=== PATIENT | female | born 1990 | race Two or more races ===

== ENCOUNTER 2018-06-30 17:10 | Emergency (ER) | payer MEDICARE, MEDICAID ==
[~2018-06-30] VITALS: Ht 160 cm; Wt 65.8 kg
[2018-06-30 17:22] VITALS: BP 125/75
[2018-06-30] MEDS ORDERED: TETANUS-DIPTH-ACEL PERTUSSIS 0.5ML SYRG IM ONE (17:45)
== END 2018-06-30 18:15 | disposition home or self-care (01) ==
LOC: ER 17:10
DX: S60.551A Superficial foreign body of right hand, initial encounter (principal); W22.8XXA Striking against or struck by other objects, initial encounter; Y93.89 Activity, other specified; Y92.89 Other specified places as the place of occurrence of the external cause; Y99.8 Other external cause status
CPT/HCPCS: 10120; 90471; 90715

== ENCOUNTER 2024-07-14 08:17 | Emergency (ER) | payer MEDICARE, MEDICAID ==
[~2024-07-14] VITALS: Ht 165.1 cm; Wt 59.0 kg
[2024-07-14 08:45] VITALS: PULSE 105; RESP 15; O2SAT 97
[2024-07-14 09:09] LABS: Basophils # (auto) 0 10 ^3/uL (0-0.2); Basophils % (auto) 0.4 % (0.0-2.0); Eosinophils # (auto) 0 10 ^3/uL (0-0.8); Lymphocytes # (auto) 1.2 10 ^3/uL (0.4-5.4); Nucleated Red Blood Cells % 0.1 %; White Blood Cell 5.8 10^3/uL (4.4-10.8)
[2024-07-14 09:11] LABS: Eosinophils % (auto) 0.3 % (0.0-7.0); Hematocrit 36.8 % (36.0-46.0); Hemoglobin 12.2 g/dL (12.2-16.2); Lymphocytes % (auto) 21.5 % (10.0-50.0); Mean Corpuscular Hemoglobin 26.4 pg (28.0-32.0); Mean Corpuscular Hgb Conc. 33.2 g/dL (32.0-36.0); Mean Corpuscular Volume 79.4 fL (80.0-100.0); Monocytes # (auto) 0.4 10 ^3/uL (0-1.3); Monocytes % (auto) 7.1 % (0.0-12.0); Neutrophils # (auto) 4.1 10 ^3/uL (1.6-8.6); Neutrophils % (auto) 70.7 % (37.0-80.0); Platelet Count (auto) 136 10^3/uL (140-450); Red Blood Cells 4.63 10^6/uL (4.0-5.20); Red Cell Distribution Width 15.8 % (11.8-14.3)
[2024-07-14 09:15] LABS: Urine Bacteria MOD /hpf (None Seen); Urine Blood Negative /uL (Negative); Urine Clarity Clear (Clear); Urine Protein, UAD Negative (Negative); Urine Specific Gravity 1.006 (1.001-1.035); Urine Urobilinogen Normal (Negative); Urine WBC 3 /hpf (0 - 5)
[2024-07-14 09:18] LABS: Urine Color STRAW (Yellow)
[2024-07-14 10:42] LABS: Amphetamine Screen, Urine Neg (NEGATIVE); Barbiturate Scree,Urine Neg (NEGATIVE); Benzodiazephine Screen, Urine Neg (NEGATIVE); Cocaine Screen, Urine Neg (NEGATIVE)
[2024-07-14 10:43] LABS: Cannabinoid Screen, Urine Neg (NEGATIVE); Opiate Scree,Urine Neg (NEGATIVE); Phencyclidine Screen, Urine Neg (NEGATIVE)
[2024-07-14 10:47] LABS: Albumin 4.7 g/dL (3.2-4.8); Alkaline Phosphatase 110 U/L (46-116); Anion Gap 10 (5-15); Aspartate Aminotransferase 43 U/L (13-40); BUN/Creatinine Ratio 10.1 (10.0-20.0); Bilirubin, Total 1.3 mg/dL (0.2-1.0); Blood Urea Nitrogen 8 mg/dL (9-23); Calcium 9.6 mg/dL (8.7-10.4); Carbon Dioxide 22 mmol/L (20-30); Chloride 103 mmol/L (98-107); Glucose 120 mg/dL (74-106); Potassium 3.3 mmol/L (3.5-5.1); Sodium 135 mmol/L (136-145); Total Protein 7.6 g/dL (5.7-8.2)
[2024-07-14 10:50] LABS: Salicylate < 3.0 mg/dL (2.8-20.0)
[2024-07-14 11:02] LABS: Alanine Aminotransferase 48 U/L (7-40)
[2024-07-14 12:53] LABS: Acetaminophen < 2.0 UG/ML (10.0-20.0)
[2024-07-14 14:46] VITALS: PULSE 98; RESP 18; O2SAT 96
[2024-07-14 17:55] VITALS: BP 110/59; PULSE 98; RESP 20; TEMP 98.1; O2SAT 96
== END 2024-07-14 17:55 | disposition home or self-care (01) ==
LOC: ER 08:17 → EDBD 08:17 → ER 17:55
DX: F29 Unspecified psychosis not due to a substance or known physiological condition (principal); D46.9 Myelodysplastic syndrome, unspecified; F20.89 Other schizophrenia; R10.2 Pelvic and perineal pain; Z79.899 Other long term (current) drug therapy
CPT/HCPCS: 36415; 80053; 80307; 80329; 81001; 81025; 84702; 85025; 93005